=== PATIENT | male | born 1950 | race Caucasian/White ===

== ENCOUNTER → 2018-07-05 | Outpatient (CLI) | payer MEDICARE, OTHER ==
[~2018-07-05] MED LIST: ADALAT CC60 MG PO; ALTACE 10MG TAB10 MG PO; ASPIRIN 81M81 MG/TA2 PO; CIPRO 500MG TA500 MG PO; EPA FISH OIL1000 MG PO; GLUCOPHAGE500 MG/TAB PO; HYDRODIURIL50 MG PO; K-DUR20 MEQ PO; MULTIPLE VITAMI1 TA1 PO; NORCO 325 MG-51 TAB PO; NOVOLOG MIX 70/33 ML SQ; VICTOZA6 MG/ML SQ; VITAMIN E800 I1 PO; ZOCOR 40MG40 MG PO; ZOFRAN 4MG T4 MG/TAB PO
== END ==
LOC: COL.RAD 13:43
DX: E87.0 Hyperosmolality and hypernatremia (principal)

== ENCOUNTER 2020-03-10 10:36 | Inpatient (IN) | payer MEDICARE, OTHER ==
[~2020-03-10] VITALS: Ht 188 cm; Wt 92.7 kg
[2020-03-10] VITALS (253 sets, daily range): BP systolic 101–143; BP diastolic 65–70; PULSE 46–52; TEMP 97.5–97.6; O2SAT 80–100
[2020-03-10 11:01] LABS: BASO % 0.3 % (0.0-2.0); EOS # 0.3 (0.0-0.7); EOS % 3.8 % (0-4.0); GRAN # 5.3 (1.4-6.5); HEMATOCRIT 45.2 % (42.0-52.0); HEMOGLOBIN 14.3 g/dl (13.5-18.0); LYMPH # 1.6 (1.2-3.4); LYMPH % 20.6 % (20.0-51.0); MEAN CELL VOLUME 97 fl (80.0-100.0); MEAN CORPUSCULAR HEMOGLOBIN 31 pg (27.0-31.0); MEAN CORPUSCULAR HGB CONC 32 g/dl (33.0-37.0); MEAN PLATELET VOLUME 13.3 fl (7.4-10.4); MONO # 0.7 (0.1-0.6); MONO % 8.2 % (1.7-9.3); PLATELET COUNT 113 K/mm3 (130-400); RED BLOOD COUNT 4.67 M/mm3 (4.20-5.60); REDCELL DISTRIBUTION WIDTH-CV 13.6 % (11.5-14.5)
[2020-03-10 11:10] LABS: ALBUMIN 3.9 gm/dL (3.5-5.0); CALCIUM 9.6 mg/dL (8.4-10.2); CREATININE, serum 1.63 (0.66-1.25); POTASSIUM 3.8 mmol/L (3.4-5.0)
[2020-03-10 12:13] LABS: COLLECTION METHOD CLEAN CATCH
[2020-03-10] MEDS ORDERED: NOVOLOG MIX 70/33 ML SQ (12:20)
[2020-03-10] MEDS ORDERED: XALATAN EYE DROPS OS (12:23)
[2020-03-10 12:29] LABS: MUCOUS Present /lpf; PH 5 (5-8); SQUAMOUS EPITHELIAL None Seen /hpf; URINE APPEARANCE Clear; URINE BACTERIA None Seen /hpf; URINE BILIRUBIN Negative (NEGATIVE); URINE BLOOD Negative (NEGATIVE); URINE COLOR Yellow; URINE GLUCOSE 3+ (NEGATIVE); URINE KETONE Negative (NEGATIVE); URINE LEUKOCYTE ESTERASE Negative (NEGATIVE); URINE NITRATE Negative (NEGATIVE); URINE PROTEIN(semi-quant) Negative (NEGATIVE); URINE RBC 0-2 /hpf; URINE UROBILINOGEN Negative (NEGATIVE)
[2020-03-10 15:00] LABS: TSH w REFLEX 3.81 uIU/mL (0.465-4.680)
--- NOTE | 2020-03-10 15:10 | NUR ---
RECEIVED REPORT SALOME MCGUIRE RN IN ER. AWAITING ARRIVAL OF PT TO ICU 5.
--- NOTE | 2020-03-10 15:30 | NUR ---
PT ARRIVES TO ICU 5 ON STRETCHER ON RA. PT ASSISTED X1 TO ICU BED AND PLACED ON PATENT SEARCHER. STUMBLY GAIT NOTED. CALL LIGHT AND URINAL WITHIN REACH. SEE GTT FLOWSHEET.
--- NOTE | 2020-03-10 16:03 | NUR ---
DR ZAPATA AT BEDSIDE FOR ASSESSMENT.
[2020-03-10 17:26] LABS: CALCIUM 9.4 mg/dL (8.4-10.2); CREATININE, serum 1.47 (0.66-1.25); POTASSIUM 3.3 mmol/L (3.4-5.0)
--- NOTE | 2020-03-10 17:55 | NUR ---
DR ZAPATA MADE AWARE OF NA 167, NO NEW ORDERS
--- NOTE | 2020-03-10 18:28 | NUR ---
NOTIFIED TAE HOLLIDAY ABOUT PT'S K 3.3, NEW ORDERS RECEIVED. SEE MAR.
--- NOTE | 2020-03-10 19:30 | NUR ---
RECEIVED BEDSIDE REPORT FROM MAYURI VOGEL. ALL QUESTIOS ANSWERED AND ALL MEDICATIONS VERIFIED. PATIENT IS A&O X 4 RESTING IN BED WATCHING TV. VS WNL. WILL RESUME CARE AT THIS TIME.
--- NOTE | 2020-03-10 21:18 | NUR ---
BLOOD [id number] - HELD INSULIN GTT X 30 MINS THEN RESTART AT 6 UNITS
[2020-03-11] VITALS (520 sets, daily range): BP systolic 112–166; BP diastolic 63–82; PULSE 42–52; TEMP 97.7–98.6; O2SAT 90–100
[2020-03-11 02:44] LABS: CALCIUM 8.7 mg/dL (8.4-10.2); CREATININE, serum 1.43 (0.66-1.25); POTASSIUM 3.2 mmol/L (3.4-5.0)
[2020-03-11 05:17] LABS: BASO % 0.3 % (0.0-2.0); EOS # 0.3 (0.0-0.7); EOS % 4.4 % (0-4.0); GRAN # 4.3 (1.4-6.5); GRAN % 58.4 % (42.2-75.2); HEMATOCRIT 41.1 % (42.0-52.0); LYMPH # 2.1 (1.2-3.4); LYMPH % 28.3 % (20.0-51.0); MEAN CELL VOLUME 97 fl (80.0-100.0); MEAN CORPUSCULAR HEMOGLOBIN 31 pg (27.0-31.0); MEAN CORPUSCULAR HGB CONC 32 g/dl (33.0-37.0); MEAN PLATELET VOLUME 13.9 fl (7.4-10.4); MONO # 0.6 (0.1-0.6); MONO % 8.3 % (1.7-9.3); PLATELET COUNT 108 K/mm3 (130-400); RED BLOOD COUNT 4.25 M/mm3 (4.20-5.60); REDCELL DISTRIBUTION WIDTH-CV 13.5 % (11.5-14.5)
--- NOTE | 2020-03-11 07:30 | NUR ---
REPORT RECEUVED FROM TAE MESSINA.
[2020-03-11 09:27] LABS: CALCIUM 8.4 mg/dL (8.4-10.2); CREATININE, serum 1.35 (0.66-1.25); POTASSIUM 3.5 mmol/L (3.4-5.0)
--- NOTE | 2020-03-11 14:36 | NUR ---
QUIN contacted the patient's , Ivette (ph#[phone]), to discuss discharge plan. The patient lives in [place] with his . Ivette reports that the patient is independent with ADLs and does not have any DME. The patient's PCP is Dr. Dougie Rodriguez and he receives his medications from [facility]. Ivette reports no difficulties obtaining his meds. The patient does not have a DPOA-HC in EMR, but Ivette reports that the patient does have one completed and that she is his DPOA-HC. She states that Dr. Rodriguez's office should have a copy of the document. QUIN contacted Radha at [facility] and requested a copy. Radha reports that they do have a DPOA-HC on file and will fax it to the ICU. Ivette reports that the plan is for the patient to return back home with her upon discharge. No additional needs at this time.
[2020-03-11 15:17] LABS: CALCIUM 8.3 mg/dL (8.4-10.2); CREATININE, serum 1.44 (0.66-1.25); POTASSIUM 4.3 mmol/L (3.4-5.0)
--- NOTE | 2020-03-11 16:00 | NUR ---
NOTIFIED OF NA DROP FROM [id number]. NO NEW ORDERS AT THIS TIME.
--- NOTE | 2020-03-11 18:20 | NUR ---
ATTEMPTED TO ALL REPORT TO MEDICAL. RN STATES SHE WILL CALL BACK
--- NOTE | 2020-03-11 18:33 | NUR ---
ATTEMPTED TO CALL REPORT. NURSE IN CHARGE REPORT. WILL CALL BACK.
--- NOTE | 2020-03-11 18:44 | NUR ---
MEDICAL CHARGE CALLED THIS RN FOR REPORT. ALL QUESTIONS ANSWERED. WILL TRANSFER PT TO ROOM 355
--- NOTE | 2020-03-11 19:06 | NUR ---
PT TRANSFERED UPSTAIRS BY KEYLARI TO ROOM 355. PT HAS IPAD, CPAP, HEARING AIDS AND CHARGE. PT TRANSFERED TO BED. BED ALARM ACTIVE. PT ORIENTED TO ROOM AND CALL LIGHT. INDUSTRIAL CHEMICALS SUPERVISOR NOTIFIED OF ARRIVAL.
--- NOTE | 2020-03-11 19:10 | NUR ---
To room 355 from ICU via wheelchair. Oriented to room/policy. VS stable. Denies needs/questions/concerns. Call light in reach/bed alarm on. Will monitor.
--- NOTE | 2020-03-11 20:00 | NUR ---
Report received, assumed care for welder 2nd shift. Assessment complete. VS stable. A&Ox3-forgetful and impulsive. Denies pain/nausea/shortness of breath. States he is feeling a little better and less weak. NC WNL. Plan of care discussed for this shift to include HS meds/glucose checks/calling for questions/concerns. Verbalizes understanding denies questions/concerns. Discussed calling when needing to use the bathroom. Bed alarm on. Will monitor.
--- NOTE | 2020-03-12 | NUR ---
Resting in bed eyes closed/CPAP on. No s/s of pain/discomfort noted. Call light in reach/bed alarm on. Will monitor.
[2020-03-12 03:18] VITALS: BP 142/73; PULSE 50; TEMP 98
--- NOTE | 2020-03-12 05:14 | NUR ---
Rested well this shift. VS remained stable. A&Ox3-neuro checks WNL-sometimes forgetful and impulsive. Gait is not very steady-lost balance when getting up to the restroom. Denies pain/nausea/shortness of breath. IV to to right wrist with 1/2 NS@75ml/hr-infusing without difficulty. Denies questions/concerns. Call light in reach. Will monitor.
[2020-03-12 06:38] LABS: BASO % 0.1 % (0.0-2.0); EOS # 0.3 (0.0-0.7); EOS % 4.4 % (0-4.0); GRAN # 4.7 (1.4-6.5); GRAN % 61.1 % (42.2-75.2); HEMATOCRIT 39.3 % (42.0-52.0); HEMOGLOBIN 12.6 g/dl (13.5-18.0); LYMPH % 26.2 % (20.0-51.0); MEAN CELL VOLUME 94 fl (80.0-100.0); MEAN CORPUSCULAR HEMOGLOBIN 30 pg (27.0-31.0); MEAN CORPUSCULAR HGB CONC 32 g/dl (33.0-37.0); MEAN PLATELET VOLUME 13.7 fl (7.4-10.4); MONO # 0.6 (0.1-0.6); MONO % 7.8 % (1.7-9.3); PLATELET COUNT 98 K/mm3 (130-400); RED BLOOD COUNT 4.18 M/mm3 (4.20-5.60); REDCELL DISTRIBUTION WIDTH-CV 13.3 % (11.5-14.5)
[2020-03-12 06:50] LABS: CALCIUM 8.1 mg/dL (8.4-10.2); CREATININE, serum 1.36 (0.66-1.25); POTASSIUM 3.9 mmol/L (3.4-5.0)
[2020-03-12 07:34] VITALS: BP 139/67; PULSE 49; TEMP 98.1
--- NOTE | 2020-03-12 08:43 | NUR ---
PATIENT ASSESSMENT COMPLETED. HE IS IMPULSIVE AND CHAIR ALARM IS ON. HE HAS COMPLETED BREAKFAST.
[2020-03-12 11:21] VITALS: BP 121/63; PULSE 47; TEMP 97.8
--- NOTE | 2020-03-12 11:21 | NUR ---
First visit from the household appliance assembler. No needs right now.
[2020-03-12 16:33] VITALS: BP 115/69; PULSE 60; TEMP 97.4
[2020-03-12 20:21] VITALS: BP 137/74; PULSE 48; TEMP 97.7
--- NOTE | 2020-03-12 23:36 | NUR ---
Patient was ambulaing to the bathroom with unsteady gait upon enter the room. Assisted patient to the bathroom to void. Patient pleasant, alert and oriented. Denies any pain or discomfort. BS 220 at 20:19 pm. No s/s of hyperglycemia noted. Scheduled meds given per order. Patient took medications without difficulty. 1/2 NS infusing well at 75ml/hr. Right wrist IV site has no s/s of complications. Call light within reach. patient denies any needs at this time.
[2020-03-12 23:53] VITALS: BP 126/70; PULSE 43; TEMP 98.4
--- NOTE | 2020-03-13 01:25 | NUR ---
gastrointestinal technician called with reports of bradycardia in the 40-45 range-baseline for patient. No c/o pain/nausea/shortness of breath/lightheadedness. New orders received to decrease notification parameters to 35.
[2020-03-13 04:44] VITALS: BP 103/59; PULSE 48; TEMP 98.4
[2020-03-13 07:07] LABS: BASO % 0.1 % (0.0-2.0); EOS # 0.2 (0.0-0.7); EOS % 3.5 % (0-4.0); GRAN # 4.5 (1.4-6.5); GRAN % 65.5 % (42.2-75.2); HEMATOCRIT 39.2 % (42.0-52.0); HEMOGLOBIN 12.7 g/dl (13.5-18.0); LYMPH # 1.4 (1.2-3.4); LYMPH % 21.2 % (20.0-51.0); MEAN CELL VOLUME 94 fl (80.0-100.0); MEAN CORPUSCULAR HEMOGLOBIN 30 pg (27.0-31.0); MEAN CORPUSCULAR HGB CONC 32 g/dl (33.0-37.0); MEAN PLATELET VOLUME 14.4 fl (7.4-10.4); MONO # 0.6 (0.1-0.6); PLATELET COUNT 97 K/mm3 (130-400); RED BLOOD COUNT 4.18 M/mm3 (4.20-5.60)
[2020-03-13 07:16] LABS: CREATININE, serum 1.46 (0.66-1.25); POTASSIUM 3.6 mmol/L (3.4-5.0)
[2020-03-13 08:52] VITALS: BP 120/66; PULSE 48; TEMP 97.5
--- NOTE | 2020-03-13 09:00 | NUR ---
Patient sitting up in bed watching TV. A&Ox3. VSS. IV CDI, fluids infusing. Denies pain and discomfort. Fall precautions in place. No further needs expressed from the patient. Call light within reach. Bed alarm on
[2020-03-13 12:29] VITALS: BP 127/65; PULSE 44; TEMP 97.6
[2020-03-13] MEDS ORDERED: NOVLOG SQ (14:12)
[2020-03-13] MEDS ORDERED: LEVEMIR FLEX100 U/ML SQ (14:13)
--- NOTE | 2020-03-13 15:00 | NUR ---
Discharge paperwork reviewed with the patients over the phone. Patients verbalized an understanding to follow doctors orders and new medications ordered. IV removed, tip intact, gauze and coban applied. No further needs expressed from the patient or patient . Discharge paperwork and personal belongings with the patient. Patient transfered by wheelchair to ER entrance. waiting to take patient home.
== END 2020-03-13 15:00 | disposition home or self-care (01) | DRG 637 ==
LOC: COL.ER 10:36 → ICU 12:02 → MEDICAL 03-11 19:00
PROVIDERS: Family Medicine; Hospitalist; Student in an Organized Health Care Education/Training Program; ADMIT Internal Medicine
DX: E11.65 Type 2 diabetes mellitus with hyperglycemia (principal); G93.41 Metabolic encephalopathy; E87.0 Hyperosmolality and hypernatremia; N17.9 Acute kidney failure, unspecified; I10 Essential (primary) hypertension; I25.10 Atherosclerotic heart disease of native coronary artery without angina pectoris; I65.29 Occlusion and stenosis of unspecified carotid artery; E87.6 Hypokalemia; E78.5 Hyperlipidemia, unspecified; N52.9 Male erectile dysfunction, unspecified; M17.0 Bilateral primary osteoarthritis of knee; G47.33 Obstructive sleep apnea (adult) (pediatric); Z95.5 Presence of coronary angioplasty implant and graft; Z20.828 Contact with and (suspected) exposure to other viral communicable diseases
CPT/HCPCS: 99223-AI; 99232-AI; 99239; J1644; J1815; J7070; J7120

== ENCOUNTER 2022-04-07 02:48 | Inpatient (IN) | payer MEDICARE, OTHER ==
[~2022-04-07] VITALS: Ht 188 cm; Wt 77.1 kg
[2022-04-07] VITALS (461 sets, daily range): BP systolic 95–132; BP diastolic 54–69; PULSE 50–80; TEMP 97.2–98; O2SAT 86–100
[~2022-04-07 02:48] MED LIST changes: +LEVEMIR FLEX100 U/ML SQ; +LIPITOR 40MG TA40 MG PO; +MEDROL 4MG DOSPA4 MG PO; +NOVLOG SQ; +XALATAN EYE DROPS OS
[2022-04-07 03:16] LABS: BASO % 0.2 % (0.0-2.0); EOS # 0.4 K/mm3 (0.0-0.7); GRAN # 7.1 K/mm3 (1.4-6.5); LYMPH # 2.3 K/mm3 (1.2-3.4); LYMPH % 21.1 % (20.0-51.0); MEAN CELL VOLUME 104 fl (80.0-100.0); MEAN CORPUSCULAR HGB CONC 30 g/dl (33.0-37.0); MEAN PLATELET VOLUME 13.2 fl (7.4-10.4); MONO % 9.1 % (1.7-9.3); PLATELET COUNT 160 K/mm3 (130-400); RED BLOOD COUNT 2.61 M/mm3 (4.20-5.60); REDCELL DISTRIBUTION WIDTH-CV 17.7 % (11.5-14.5)
[2022-04-07 03:17] LABS: HEMATOCRIT 27.1 % (42.0-52.0); MEAN CORPUSCULAR HEMOGLOBIN 31 pg (27-31)
[2022-04-07 03:44] LABS: BILIRUBIN,TOTAL 0.4 mg/dL (0.2-1.2); CALCIUM 8.5 mg/dL (8.4-10.2); CREATININE, serum 1.67 mg/dL (0.72-1.25); POTASSIUM 4.6 mmol/L (3.5-4.5); TOTAL PROTEIN 4.7 gm/dL (6.2-8.1)
[2022-04-07 03:50] LABS: TROPONIN-I 0.017 ng/mL (0.00-0.033)
[2022-04-07 04:31] LABS: INR 1.2 (0.8-3.0); PROTHROMBIN TIME 13.7 SECONDS (9.7-12.8)
[2022-04-07 05:04] LABS: COLLECTION METHOD CATHETER
[2022-04-07 05:14] LABS: MUCOUS Present (NOT PRESENT); SQUAMOUS EPITHELIAL 0-2 /hpf (0-10); URINE BACTERIA None Seen /hpf (NONE SEEN); URINE RBC 20-50 /hpf (0-2)
[2022-04-07 05:15] LABS: URINE APPEARANCE Clear (CLEAR/HAZY); URINE BLOOD 2+ (NEGATIVE); URINE COLOR Yellow (YELLOW); URINE GLUCOSE Negative (NEGATIVE); URINE KETONE Negative (NEGATIVE); URINE NITRATE Negative (NEGATIVE); URINE PROTEIN(semi-quant) Negative (NEGATIVE); URINE UROBILINOGEN 0.2 E.U/dL (0.2-1.0)
[2022-04-07] MEDS ORDERED: DDAVP SL (05:58)
[2022-04-07] MEDS ORDERED: ZYLOPRIM 100MG100 MG PO (05:58)
[2022-04-07 06:51] LABS: HEMATOCRIT 24.4 % (42.0-52.0); HEMOGLOBIN 7.6 g/dl (13.5-18.0)
--- NOTE | 2022-04-07 08:24 | NUR ---
Assisted up to the commode as patient stated he need to have a "BM", however he was not able to have a bowel movement at this time. Patient denies any pain or shortness of breath. Has had no further episode of bloody emesis or stools. VS stable. Call light left within reach.
--- NOTE | 2022-04-07 10:30 | NUR ---
Returned to the unit from endoscopy. Patient drowsy but when awakens is alert. Will continue to monitor.
--- NOTE | 2022-04-07 11:31 | NUR ---
QUIN met with patient to complete intake. Patient patrizia and daughter Ute ([phone]) is present at bedside. Patient lives at home with his Ivette ([phone]) in [place]. He is normally independent with his ADL's and does not utilize any DME to assist with mobility but does have access to both a cane and a walker at home to assist. Patient has no home oxygen needs. PCP is and he is also followed by and . Ute is unsure if the patient has a DPOA-HC established at this time but "thinks" it's Ivette. Patient was sent to [facility] post discharge in January, and was sent home with [facility] that has since been discontinued. Ute verbalizes that the patient needs home health again for PT, but that convincing her mother of this will be difficult as she is his primary caregiver.
[2022-04-07 12:08] LABS: HEMATOCRIT 23.8 % (42.0-52.0); HEMOGLOBIN 7.5 g/dl (13.5-18.0)
--- NOTE | 2022-04-07 13:06 | NUR ---
Initial visit; Patient and his Ivette thanked Horse Trekking Guide for looking in on him and offering prayer and God's blessings. Horse Trekking Guide will follow up and will keep Eric in her prayers.
--- NOTE | 2022-04-07 17:59 | NUR ---
Pt to medical floor, room 352. Pt oriented to room and call light system. Pt A&Ox3; pt required orientation to situation as pt did not remember what occurred this morning that brought him to the hospital. HR RRR. LCTA CR. BSx4 hypoactive. INT in L and R AC CDI. Vasquez catheter remains in place. Pedal pulses noted CR. LLE scaling/flaking with redness. Pt has glasses in room and hearing aids on CR. Ivette (spouse) remains at bedside. Call light within reach. Bed alarm on.
--- NOTE | 2022-04-07 18:50 | NUR ---
The patient is sleeping at this time. His , Ivette, is at bedside. Per , the patient will not call to get up because he doesn't want to bother us. This RN informed her that we will have a bed alarm on to notify us of when he attempts to get out of bed so that we can help reorient him. 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 No other concerns at this time. Will return for assessment and medications.
[2022-04-07 18:55] LABS: HEMATOCRIT 23.9 % (42.0-52.0); HEMOGLOBIN 7.6 g/dl (13.5-18.0)
[2022-04-08] VITALS (20 sets, daily range): BP systolic 113–147; BP diastolic 53–78; PULSE 50–68; TEMP 97.4–98.4
[2022-04-08 00:34] LABS: HEMATOCRIT 24.2 % (42.0-52.0); HEMOGLOBIN 7.7 g/dl (13.5-18.0)
--- NOTE | 2022-04-08 06:20 | NUR ---
This patient had an uneventful night. His sodium did climb back up to 160, however he is drinking water, and has D5W running at 100. No other concerns.
--- NOTE | 2022-04-08 07:20 | NUR ---
Assessment complete. A&Ox4. Denies pain/nausea/shortness of breath. VS stable. Tele reporting NSR. Currently on room air. Consent form signed for endoscopyy this AM. Has remained NPO since midnight until this AM when clear liquid tray was delivered to room. Patient took on sip of broth prior to this nurse realizing he had a tray. Endoscopy nurse aware. Vasquez cath with clear yellow urine. Plan of care discussed for this shift to include meds/endoscopy/calling for questions/concerns. Verbalizes understanding. Call light in reach. Will monitor.
--- NOTE | 2022-04-08 10:43 | NUR ---
Follow-up visit; Patient and his thanked Neighborhood Aide for checking on him again and states he is doing well, his esophagus has a tear but is healing. Neighborhood Aide offered a special blessing and wished Eric well.
[2022-04-08 10:54] LABS: BASO % 0.3 % (0.0-2.0); EOS # 0.5 K/mm3 (0.0-0.7); EOS % 3.4 % (0.0-4.0); GRAN # 8.9 K/mm3 (1.4-6.5); LYMPH # 2.6 K/mm3 (1.2-3.4); LYMPH % 19.6 % (20.0-51.0); MEAN CELL VOLUME 101 fl (80.0-100.0); MEAN CORPUSCULAR HGB CONC 31 g/dl (33.0-37.0); MEAN PLATELET VOLUME 13.7 fl (7.4-10.4); MONO # 1.2 K/mm3 (0.1-0.6); MONO % 9.1 % (1.7-9.3); PLATELET COUNT 165 K/mm3 (130-400); RED BLOOD COUNT 2.15 M/mm3 (4.20-5.60)
[2022-04-08 10:57] LABS: HEMATOCRIT 21.6 % (42.0-52.0); HEMOGLOBIN 6.6 g/dl (13.5-18.0); MEAN CORPUSCULAR HEMOGLOBIN 31 pg (27-31)
[2022-04-08 10:58] LABS: CALCIUM 7.8 mg/dL (8.4-10.2); CREATININE, serum 1.52 mg/dL (0.72-1.25); POTASSIUM 3.6 mmol/L (3.5-4.5)
--- NOTE | 2022-04-08 11:00 | NUR ---
AL Rodriguez notified of critical HGB of 6.6
--- NOTE | 2022-04-08 12:15 | NUR ---
Patient up to bathroom at this time. Will initiate blood when complete.
--- NOTE | 2022-04-08 16:36 | NUR ---
Spoke with Jennifer about IV fluids vs high blood sugars as well as lab draw due now. H/H is due 6 hours post transfusion. Lab rquestintg to wait on BMP when H/H is due. OKd to draw both six hours post transfusion. New orders received for insulin.
--- NOTE | 2022-04-08 18:41 | NUR ---
Lab notified that TAE Loya would like labs drawn now. States will send tech up.
--- NOTE | 2022-04-08 18:45 | NUR ---
THE HORTICULTURAL THERAPIST CAME DURING SHIFT CHANGE TO INFORM THIS RN THE PATIENT'S IV WAS NO LONGER IN PLACE. RESTARTED IV IN THE RIGHT FOREARM. NO COMPLAINTS. H&H PENDING.
--- NOTE | 2022-04-08 18:46 | NUR ---
Patient rested well this shift. Had EGD this Am. Received one unit of blood. Denied pain/nausea/shortness of breath. Tolerated PO. Denies current needs. Call light in reach. Will monitor.
[2022-04-08 19:37] LABS: CALCIUM 7.7 mg/dL (8.4-10.2); CREATININE, serum 1.35 mg/dL (0.72-1.25); POTASSIUM 3.5 mmol/L (3.5-4.5)
[2022-04-08 19:39] LABS: HEMATOCRIT 23.3 % (42.0-52.0); HEMOGLOBIN 7.5 g/dl (13.5-18.0)
[2022-04-09 04:53] VITALS: BP 136/53; PULSE 52; TEMP 97.6
[2022-04-09 06:13] LABS: BASO % 0.2 % (0.0-2.0); EOS # 0.2 K/mm3 (0.0-0.7); EOS % 2.4 % (0.0-4.0); GRAN # 5.8 K/mm3 (1.4-6.5); GRAN % 59.9 % (42.2-75.2); LYMPH # 2.6 K/mm3 (1.2-3.4); LYMPH % 26.7 % (20.0-51.0); MEAN CELL VOLUME 100 fl (80.0-100.0); MEAN CORPUSCULAR HGB CONC 31 g/dl (33.0-37.0); MEAN PLATELET VOLUME 12.8 fl (7.4-10.4); MONO # 0.9 K/mm3 (0.1-0.6); MONO % 9.6 % (1.7-9.3); PLATELET COUNT 157 K/mm3 (130-400); RED BLOOD COUNT 2.28 M/mm3 (4.20-5.60); REDCELL DISTRIBUTION WIDTH-CV 17.1 % (11.5-14.5)
[2022-04-09 06:14] LABS: HEMATOCRIT 22.7 % (42.0-52.0); MEAN CORPUSCULAR HEMOGLOBIN 31 pg (27-31)
[2022-04-09 06:27] LABS: CALCIUM 7.4 mg/dL (8.4-10.2); CREATININE, serum 1.33 mg/dL (0.72-1.25); POTASSIUM 3.2 mmol/L (3.5-4.5)
--- NOTE | 2022-04-09 08:00 | NUR ---
Patient sitting up in bed, A&Ox4. VSS. IV CDI, fluids infusing. Denies pain and discomfort. at the bedside assisting with ADL's. Call light within reach
[2022-04-09 08:19] VITALS: BP 134/61; PULSE 50; TEMP 98.1
[2022-04-09 11:47] VITALS: BP 165/73; PULSE 45; TEMP 98
[2022-04-09 13:08] LABS: HEMOGLOBIN 7.2 g/dl (13.5-18.0)
--- NOTE | 2022-04-09 15:12 | NUR ---
PT is recommending home. QUIN met with the patient and his daughter to follow up about home health and review discharge plan. The patient states that he would be agreeable to home health. His daughter states that the patient did have home health in the past through [facility]. The patient is agreeable to using [facility] again. The patient's , Ivette, then arrived to the hospital. Ivette is agreeable to this plan. QUIN contacted and faxed a referral to Jerald at [facility]. *Discharge plan: home with and home health*
[2022-04-09] MEDS ORDERED: FERROUS SU325 MG/TAB PO (16:00)
[2022-04-09] MEDS ORDERED: PROTONIX 40MG T40 MG PO (16:02)
[2022-04-09 16:15] VITALS: BP 140/63; TEMP 97.3
[2022-04-09 16:17] LABS: CLOSTRIDIUM DIFF A/B NEG; CLOSTRIDIUM DIFF A/B INTERP No C.diff present
[2022-04-09 19:43] VITALS: BP 142/70; PULSE 58; TEMP 97.4
[2022-04-09 23:25] VITALS: BP 125/65; PULSE 51; TEMP 98.1
[2022-04-10 03:39] VITALS: BP 130/66; PULSE 49; TEMP 98.3
[2022-04-10 06:24] LABS: BASO % 0.1 % (0.0-2.0); EOS # 0.3 K/mm3 (0.0-0.7); EOS % 3.7 % (0.0-4.0); GRAN # 5.1 K/mm3 (1.4-6.5); GRAN % 63.3 % (42.2-75.2); LYMPH # 1.7 K/mm3 (1.2-3.4); LYMPH % 21.3 % (20.0-51.0); MEAN CELL VOLUME 100 fl (80.0-100.0); MEAN CORPUSCULAR HGB CONC 31 g/dl (33.0-37.0); MEAN PLATELET VOLUME 12.5 fl (7.4-10.4); MONO # 0.8 K/mm3 (0.1-0.6); MONO % 10.2 % (1.7-9.3); PLATELET COUNT 153 K/mm3 (130-400); RED BLOOD COUNT 2.27 M/mm3 (4.20-5.60); REDCELL DISTRIBUTION WIDTH-CV 17.2 % (11.5-14.5)
[2022-04-10 06:38] LABS: CALCIUM 7.5 mg/dL (8.4-10.2); CREATININE, serum 1.2 mg/dL (0.72-1.25); HEMATOCRIT 22.7 % (42.0-52.0); HEMOGLOBIN 7.1 g/dl (13.5-18.0); MEAN CORPUSCULAR HEMOGLOBIN 31 pg (27-31); POTASSIUM 3.5 mmol/L (3.5-4.5)
[2022-04-10 07:48] VITALS: BP 133/69; PULSE 52; TEMP 98
--- NOTE | 2022-04-10 08:00 | NUR ---
Patient sitting up in bed, A&O VSS. IV CDI. Vasquez intact. Denies pain and discomfort. Call light within reach. Bed alarm on
--- NOTE | 2022-04-10 09:15 | NUR ---
Patient nauseous and threw up all of his breakfast. Family at the bedside assisting with getting cleaned. Patient refused nausea medication. Patient states that he feels better. Call light within reach
[2022-04-10 11:38] VITALS: BP 129/72; PULSE 50; TEMP 98.1
--- NOTE | 2022-04-10 12:40 | NUR ---
Discharge paperwork reviewed with the patient and at the bedside. Patient verbalized an understanding to follow doctors orders. IV removed, tip intact. Gauze and coban applied. Patient transfered by wheelchair to awaiting vehicle. Leg bag instruction and bag, along with salas instruction provided. Personal belongings with the patient.
--- NOTE | 2022-04-10 12:44 | NUR ---
Ginger RN informs patient discharge orders for HH at [facility] are complete. Senior Writer faxed HH orders and discharge paperwork to [facility], left VM for Facundo at [facility] to update. *Discharge to home with [facility]*
== END 2022-04-10 12:40 | disposition home health service (06) | DRG 368 ==
LOC: COL.ER 02:48 → ICU 04:23 → MEDICAL 04:23
PROVIDERS: Emergency Medicine; Internal Medicine Gastroenterology; Physician Assistant; Student in an Organized Health Care Education/Training Program; ADMIT Student in an Organized Health Care Education/Training Program
PROC: 0DJ08ZZ Inspection of Upper Intestinal Tract, Via Natural or Artificial Opening Endoscopic (ICD-10-PCS; 2022-04-07)
PROC: 0DB68ZX Excision of Stomach, Via Natural or Artificial Opening Endoscopic, Diagnostic (ICD-10-PCS; principal; 2022-04-08 08:00)
DX: K21.01 Gastro-esophageal reflux disease with esophagitis, with bleeding (principal); J18.9 Pneumonia, unspecified organism; K22.6 Gastro-esophageal laceration-hemorrhage syndrome; E87.0 Hyperosmolality and hypernatremia; N17.9 Acute kidney failure, unspecified; N13.30 Unspecified hydronephrosis; E87.1 Hypo-osmolality and hyponatremia; J90 Pleural effusion, not elsewhere classified; Z66 Do not resuscitate; I25.10 Atherosclerotic heart disease of native coronary artery without angina pectoris; E78.5 Hyperlipidemia, unspecified; E03.9 Hypothyroidism, unspecified; G47.33 Obstructive sleep apnea (adult) (pediatric); I12.9 Hypertensive chronic kidney disease with stage 1 through stage 4 chronic kidney disease, or unspecified chronic kidney disease; E11.22 Type 2 diabetes mellitus with diabetic chronic kidney disease; N18.9 Chronic kidney disease, unspecified; F10.90 Alcohol use, unspecified, uncomplicated; D69.6 Thrombocytopenia, unspecified; I95.9 Hypotension, unspecified; D64.9 Anemia, unspecified; N52.9 Male erectile dysfunction, unspecified; R41.3 Other amnesia; I65.29 Occlusion and stenosis of unspecified carotid artery; K44.9 Diaphragmatic hernia without obstruction or gangrene; H40.9 Unspecified glaucoma; M10.9 Gout, unspecified; Z87.442 Personal history of urinary calculi; Z95.5 Presence of coronary angioplasty implant and graft; Z79.82 Long term (current) use of aspirin; Z90.49 Acquired absence of other specified parts of digestive tract; Z79.4 Long term (current) use of insulin; Z98.2 Presence of cerebrospinal fluid drainage device; Z23 Encounter for immunization
CPT/HCPCS: C9113; J0696; J1815; J2704; J3010; J7070; J7120; P9016; Q9967

== ENCOUNTER 2022-06-22 05:18 | Day surgery (SDC) | payer MEDICARE, OTHER ==
[2022-06-21 10:55] LABS: HEMATOCRIT 38.4 % (42.0-52.0); HEMOGLOBIN 11.4 g/dl (13.5-18.0); MEAN CELL VOLUME 90 fl (80.0-100.0); MEAN CORPUSCULAR HEMOGLOBIN 27 pg (27-31); MEAN CORPUSCULAR HGB CONC 30 g/dl (33.0-37.0); MEAN PLATELET VOLUME 13.2 fl (7.4-10.4); PLATELET COUNT 175 K/mm3 (130-400); RED BLOOD COUNT 4.28 M/mm3 (4.20-5.60)
[2022-06-21 11:07] LABS: CALCIUM 9.2 mg/dL (8.4-10.2); CREATININE, serum 1.76 mg/dL (0.72-1.25); POTASSIUM 3.7 mmol/L (3.5-4.5)
[2022-06-22] VITALS (11 sets, daily range): BP systolic 96–167; BP diastolic 41–72; PULSE 40–59; TEMP 97–98.1
[~2022-06-22] VITALS: Ht 188 cm; Wt 77.2 kg
[~2022-06-22 05:18] MED LIST changes: +DDAVP SL; +FERROUS SU325 MG/TAB PO; +PROTONIX 40MG T40 MG PO; +ZYLOPRIM 100MG100 MG PO
[2022-06-22] MEDS ORDERED: K-TAB20 PO (06:19)
[2022-06-22 06:21] LABS: BASO % 0.4 % (0.0-2.0); EOS # 0.5 K/mm3 (0.0-0.7); EOS % 6.4 % (0.0-4.0); GRAN # 4.3 K/mm3 (1.4-6.5); GRAN % 59.8 % (42.2-75.2); HEMOGLOBIN 10.9 g/dl (13.5-18.0); LYMPH # 1.6 K/mm3 (1.2-3.4); LYMPH % 21.7 % (20.0-51.0); MEAN CELL VOLUME 87 fl (80.0-100.0); MEAN CORPUSCULAR HEMOGLOBIN 27 pg (27-31); MEAN CORPUSCULAR HGB CONC 31 g/dl (33.0-37.0); MEAN PLATELET VOLUME 11.7 fl (7.4-10.4); MONO # 0.8 K/mm3 (0.1-0.6); MONO % 11.3 % (1.7-9.3); PLATELET COUNT 168 K/mm3 (130-400); RED BLOOD COUNT 4.08 M/mm3 (4.20-5.60); REDCELL DISTRIBUTION WIDTH-CV 19.7 % (11.5-14.5)
[2022-06-22 06:24] LABS: HEMATOCRIT 35.6 % (42.0-52.0)
[2022-06-22 06:26] LABS: CALCIUM 8.8 mg/dL (8.4-10.2); CREATININE, serum 1.52 mg/dL (0.72-1.25); POTASSIUM 3.6 mmol/L (3.5-4.5)
--- NOTE | 2022-06-22 09:45 | NUR ---
PATIENT AWAKE AND ALERT, RESTING IN BED. DENIES ANY NEEDS OR COMPLAINTS AT THIS TIME. PATIENT CBI INFUSING, OUTPUT CLEAR TO LIGHT PINK. PATIENTS VITALS STABLE. LOW HR (NORMAL PER REPORT FROM MEAT MANAGER). PATIENTS FAMILY AT BEDSIDE. POST OP VITALS GOING.
--- NOTE | 2022-06-22 10:51 | NUR ---
PATIENT PXYGEN SATURATION NOW 98 % ON ROOM AIR
--- NOTE | 2022-06-22 14:40 | NUR ---
PATIENT AWAKE AND ALERT, RESTING IN BED. PATIENT DENIES ANY NEEDS OR COMPLAINTS AT THIS TIME. CBI INFUSING. CALL LIGHT WITH IN REACH. FAMILY AT BEDSIDE.
--- NOTE | 2022-06-22 17:56 | NUR ---
PATIENT RESTING IN BED, AWAKE AND ALERT. AT BEDSIDE. CBI INFUSING. PATIENT DENIES ANY NEEDS OR COMPLAINTS AT THIS TIME. PATIENT TOLERATING GENERAL DIET WELL. DENIES ANY N,V. CALL LIGHT WITHIN REACH.
[2022-06-23] VITALS (7 sets, daily range): BP systolic 116–149; BP diastolic 47–78; PULSE 45–62; TEMP 97.4–98.5
[2022-06-23 07:00] LABS: BASO % 0.3 % (0.0-2.0); EOS # 0.4 K/mm3 (0.0-0.7); EOS % 3.8 % (0.0-4.0); GRAN # 8.3 K/mm3 (1.4-6.5); GRAN % 77.3 % (42.2-75.2); LYMPH # 1.1 K/mm3 (1.2-3.4); LYMPH % 10.2 % (20.0-51.0); MEAN CELL VOLUME 87 fl (80.0-100.0); MEAN CORPUSCULAR HGB CONC 31 g/dl (33.0-37.0); MONO # 0.9 K/mm3 (0.1-0.6); MONO % 8.1 % (1.7-9.3); PLATELET COUNT 154 K/mm3 (130-400); RED BLOOD COUNT 3.56 M/mm3 (4.20-5.60); REDCELL DISTRIBUTION WIDTH-CV 19.8 % (11.5-14.5)
[2022-06-23 07:06] LABS: HEMATOCRIT 30.8 % (42.0-52.0); HEMOGLOBIN 9.6 g/dl (13.5-18.0); MEAN CORPUSCULAR HEMOGLOBIN 27 pg (27-31)
[2022-06-23 07:13] LABS: CALCIUM 8.4 mg/dL (8.4-10.2); CREATININE, serum 1.39 mg/dL (0.72-1.25); POTASSIUM 3.7 mmol/L (3.5-4.5)
--- NOTE | 2022-06-23 08:00 | NUR ---
PATIENT IS ORIENTED X2, DISPLAYS INTERMITTENT CONFUSION/FORGETFULNESS WHICH REPORTS IS HIS BASELINE. PATIENT OFTEN ASKS THE SAME QUESTIONS. VSS ON TELE. DENIES C/O PAIN OR N/V. UROLOGY ROUNDED EARLY THIS AM. P&P CASTILLO PER UROLOGY. CASTILLO CATH TIP INTACT AND PATIENT TOLERATED WELL. STARTED PATIENT ON THE 6 CUP ROUTINE AND PROVIDED PATIENT & EDUCATION. STUDENT NURSE ALSO WORKING WITH PATIENT TODAY. URINAL AT BEDSIDE. LEFT WRIST IV TO INT. AM MEDS GIVEN. HEAD TO TOE ASSESSMENT COMPLETE. SCD'S TO BLE. NO OTHER NEEDS AT THIS TIME. CALL LIGHT IN REACH. BED ALARM ON.
--- NOTE | 2022-06-23 08:03 | NUR ---
Left leg has various states of bruising. Small scab on left leg, small shearing and various states of healing on left leg. Small amount of red drainage on chucks from unknown time.
--- NOTE | 2022-06-23 09:45 | NUR ---
SW met with patient to complete intake and discuss discharge plan. Patients Ivette( [phone]) present at bedside. Together they live at home in [place]. Patient reports to being fully independent with his ADL's and IADL's. He utilizes a cane when he leaves the home, but is able to ambulate within the home independently. He has no day time oxygen needs, but does utilize a cpap at night time. PCP is Dr. Rodriguez and he [facility]. Patient does have a DPOA-HC established and a copy can be located in his EMR. Patient is planning on returning home later today with no concerns. DIscharge plan: Home
--- NOTE | 2022-06-23 10:13 | NUR ---
Initial visit; Patient and his Ivette are delightful and enjoyed visit and prayer with Html Web Developer. Html Web Developer offered God's blessings to their family.
--- NOTE | 2022-06-23 15:40 | NUR ---
PATIENT VOIDED X1 POST CASTILLO DC, URINE IS BLOODY WITH A FEW SMALL TISSUE CLOTS NOTED. PATIENT FEELS THE URGE TO VOID BUT IS NOT ABLE. BLADDER SCAN SHOWED 650CC OF URINE. PATIENT AMBULATED TO BATHROOM AND WILL ATTEMPT TO TRY AND VOID ONE MORE TIME, IF NO LUCK, WILL CALL UROLOGY.
--- NOTE | 2022-06-23 16:30 | NUR ---
ATTEMPTED STRAIGHT CATH AND UNABLE TO GET URINE RETURN. PATIENT EXPERIENCING A LOT OF PRESSURE & DISCOMFORT WITH STRAIGHT CATH. PER UROLOGY INSTRUCT, 20F THREE-WAY CASTILLO INSERTED AND TO DD. NO CBI AT THIS TIME BUT NURSING DID IRRIGATE SEVERAL CLOTS. URINE IS NOW FREE FLOWING, NOTED 1,100CC OF DARK BLOODY URINE OUT. STAT LOCK TO RLE. PATIENT NOW SITTING UP IN BED WITH SUPPER TRAY. AT BEDSIDE.
--- NOTE | 2022-06-23 22:00 | NUR ---
SHIFT REPORT FROM MINA MESSINA. PATIENT IN BED ON ROOM ENTRY. ALERT AND PARTIALLY ORIENTED WITH MOMENTS OF CONFUSION. AT BEDSIDE. HS MEDS PER EMAR. BS 188 AND LEVEMIR GIVEN. CASTILLO TO DD WITH DARK BLOODY URINE OUTPUT. DENIES PAIN. CPAP SETUP AND ON FOR HS. DENIES ADDITIONAL NEEDS. CALL LIGHT IN REACH.
[2022-06-24 04:00] VITALS: BP 135/66; PULSE 51; TEMP 98.7
[2022-06-24 07:20] LABS: CALCIUM 8.4 mg/dL (8.4-10.2); CREATININE, serum 1.13 mg/dL (0.72-1.25); POTASSIUM 3.7 mmol/L (3.5-4.5)
[2022-06-24 07:54] VITALS: BP 131/66; PULSE 50; TEMP 98.8
--- NOTE | 2022-06-24 09:22 | NUR ---
PATIENT AMBULATING IN HALLS WITH EASY 1 ASSIST. PATIENT TOLERATED ACTIVITY. AT BEDSIDE.
[2022-06-24 11:17] VITALS: BP 142/70; PULSE 50; TEMP 98.3
--- NOTE | 2022-06-24 13:45 | NUR ---
PATIENT DISCHARGING HOME WITH . DISCHARGE INSTRUCTIONS GIVEN, DISCUSSED F/U APT, AND ANSWERED QUESTIONS/CONCERNS. SENT HOME CASTILLO LEG/BED BAG SUPPLIES. VERBALIZED UNDERSTANDING FOR CATH CARE AND SWITCHING LEG/BED BAG. DC'D TELE. STUDENT NURSE ALREADY DC'D IV AND COVERED SITE WITH GAUZE & COBAN. PATIENT IS DRESSED, PACKED AND ESCORTED OUT VIA WC TO PERSONAL VEHICLE WITH .
== END 2022-06-24 13:45 | disposition home or self-care (01) ==
LOC: SDCO 05:18 → SURG 10:02 → SDCO 06-24 13:45
PROVIDERS: Urology
DX: Z01.818 Encounter for other preprocedural examination (principal); N39.8 Other specified disorders of urinary system; R31.0 Gross hematuria; N40.1 Benign prostatic hyperplasia with lower urinary tract symptoms; R39.14 Feeling of incomplete bladder emptying; R39.12 Poor urinary stream; N18.30 Chronic kidney disease, stage 3 unspecified; R35.1 Nocturia; I12.9 Hypertensive chronic kidney disease with stage 1 through stage 4 chronic kidney disease, or unspecified chronic kidney disease; F03.90 Unspecified dementia, unspecified severity, without behavioral disturbance, psychotic disturbance, mood disturbance, and anxiety; E11.22 Type 2 diabetes mellitus with diabetic chronic kidney disease; R00.1 Bradycardia, unspecified; I25.10 Atherosclerotic heart disease of native coronary artery without angina pectoris; E78.5 Hyperlipidemia, unspecified; S27.813A Laceration of esophagus (thoracic part), initial encounter; D64.9 Anemia, unspecified; M10.9 Gout, unspecified; E87.0 Hyperosmolality and hypernatremia; G47.33 Obstructive sleep apnea (adult) (pediatric); Z86.79 Personal history of other diseases of the circulatory system; Z79.4 Long term (current) use of insulin; X58.XXXA Exposure to other specified factors, initial encounter; Z79.899 Other long term (current) drug therapy
CPT/HCPCS: OP; J0690; J1815; J2250; J2405; J2704; J7120